=== PATIENT | male | born 1975 | race Caucasian/White ===

== ENCOUNTER → 2016-07-13 | Day surgery (SDC) | payer BC ==
[~2016-07-13] VITALS: Ht 190.5 cm; Wt 110.5 kg
[~2016-07-13] MED LIST: DEXT30TA7 PO; FRS/40 PO; LACT10SO17 PO; LIDOCAINE HCL 2% 2 ML VIAL (20MG/ML) ONE; MIDAZOLAM HCL 1 MG/ML 2ML VIAL ONE; ONDANSETRON INJ 2 MG/ML 2 ML VIAL ONE; POLY335019 PO; PROPOFOL IV EMULSION 10 MG/ML 20 ML VIAL IV ONE; PSYL28.310 PO; SODIUM CHLORIDE 0.9% 500ML 500 ML IV ONE; SPRN100 PO
[2016-07-13 08:18] VITALS: Ht 190.5 cm; Wt 110.5 kg
[2016-07-13 08:21] VITALS: TEMP 37
--- NOTE | 2016-07-13 09:07 | Endo History and Physical ---
History & Physical Date of Service: Jul 13, 2016. Chief Complaint: VARICES Referring Physician: FLAVIO MIGUEL History of Present Illness r/o varices Past Medical History Liver Disease Past Surgical History Hx Cardiac Surgery: No Hx Internal Defibrillator: No Hx Pacemaker: No Hx Abdominal Surgery: No Hx of Implantable Prosthesis: No Hx Post-Op Nausea and Vomiting: No Hx Cancer Surgery: No Hx Thoracic Surgery: No Hx Orthopedic: No Hx Urinary Tract Surgery: No Family History None Social History Smoking Status: Never Smoker Hx Substance Use: No Hx Alcohol Use: Yes (HX) Allergies Coded Allergies: No Known Allergies (Verified , 07/13/16) Current Medications Reported Home Medications Medications Dose Route/Sig Max Daily Dose Days Date Category Mucinex Dm (Dextromethorphan-Guaifenesin) 1 Tab Tab 1 Tab PO QAM PRN 07/11/16 Reported Chronulac (Lactulose) 10 Gm/15 Ml Syrp 15 Ml PO AFTERNOON 07/11/16 Reported Lasix (Furosemide) 40 Mg Tab 40 Mg PO QAM 07/11/16 Reported Metamucil Smooth Texture (Psyllium) 28.3 % Pow 1 Dose PO QAM PRN 06/08/16 Reported Miralax (Polyethylene Glycol 3350) 1 Pow Pow 17 Gm PO DAILY PRN 06/08/16 Reported Spironolactone 100 Mg Tab 100 Mg PO QAM 04/15/14 Reported Vital Signs Weight (Kilograms): 110.45 Height (Feet): 6 Height (Inches): 3 Date Time Temp Pulse Resp B/P Pulse Ox O2 Delivery O2 Flow Rate FiO2 07/13/16 08:21 37.0 94 18 141/72 97 Room Air Physical Exam General Appearance: no apparent distress Respiratory/Chest: Auscultation: breath sounds normal, CTA except as noted Cardiovascular: Heart Auscultation: RRR Abdomen: Inspection & Palpation: soft Assessment and Plan r/o varices - EGD
--- NOTE | 2016-07-13 09:30 | Discharge Instructions ---
Endoscopy Patient Instructions Date / Procedure(s) Performed Jul 13, 2016. EGD Allergy Information Coded Allergies: No Known Allergies (Verified , 07/13/16) Discharge Date / Findings Jul 13, 2016. esophagitis, small varices, portal gastropathy Provider Instructions Activity Restrictions - No exercising or heavy lifting for 24 hours. - Do not drink alcohol the day of the procedure. - Do not drive a car or operate machinery until the day after the procedure. - Do not make any important decisions or sign important papers in 24 hours after the procedure. Following Day: - Return to full activity which may include returning to work/school. Diet Start your diet with liquids and light foods (jello, soup, juice, toast). Then eat your usual diet if not nauseated. Treatment For Common After Affects For mild abdominal pain, bloating, or excessive gas: - Rest - Eat lightly - Lie on right side Begin prilosec once daily Follow-Up Information Follow-up with FLAVIO MIGUEL as scheduled Anesthesia Information What You Should Know You have had a procedure that required some medicine to reduce anxiety and discomfort. This treatment is called moderate sedation. After receiving the treatment, you may be sleepy, but you will be able to breathe on your own. The effects of the treatment may last for several hours. Follow these instructions along with Activity/Diet recommendations noted above: * Do NOT do anything where dizziness or clumsiness would be dangerous. * Rest quietly at home today, then you can be up and about tomorrow. * Have a responsible person stay with you the rest of today. * You may have had an I.V. today. If so, you may take the dressing off later today. Recommendations Call your doctor if: * Trouble breathing * Continuous vomiting for more than 24 hours * Temperature above 101 degrees * Severe abdominal pain or bloating * Pain not relieved by pain medicine ordered * There is increased drainage or redness from any incision * A large amount of rectal bleeding greater than 2-3 tablespoons. (If you had a polyp/s removed or have hemorrhoids, a small amount of blood - from the rectum is to be expected.) * You have any unanswered questions or concerns. IN THE EVENT OF A SERIOUS EMERGENCY, GO TO THE NEAREST EMERGENCY ROOM Your discharge instructions were prepared by provider Gabino Nicolas. Patient Instructions Signature Page Jim Spotts Patient (or Guardian) Signature/Date: I have read and understand the instructions given to me by my caregivers. Caregiver/RN/Doctor Signature/Date: The above-named patient and/or guardian has received patient instructions on this date. + Original Patient Signature Page (only) stays with chart. Please make copy for patient.
--- NOTE | 2016-07-13 09:35 | Anesthesiology Progress Note ---
Anesthesia Post Op Note Date & Time Jul 13, 2016 at 09:34 Vital Signs Pain Intensity: 0 Vital Signs Past 12 Hours Date Time Temp Pulse Resp B/P Pulse Ox O2 Delivery O2 Flow Rate FiO2 07/13/16 09:28 93 18 131/75 95 Room Air 07/13/16 09:24 93 18 141/75 96 Room Air 07/13/16 08:21 37.0 94 18 141/72 97 Room Air Notes Mental Status: alert / awake / arousable, participated in evaluation Pt Amnestic to Procedure: Yes Nausea / Vomiting: adequately controlled Pain: adequately controlled Airway Patency, RR, SpO2: stable & adequate BP & HR: stable & adequate Hydration State: stable & adequate Anesthetic Complications: no major complications apparent
[2016-07-13 09:51] VITALS: BP 128/62; PULSE 84; O2SAT 97
--- NOTE | 2016-07-13 11:08 | GI REPORT ---
Procedure Date: 07/13/2016 9:00 AM Procedure: Upper GI endoscopy Indications: Follow-up of esophageal varices Medicines: See the Anesthesia note for documentation of the administered medications Complications: No immediate complications. Estimated Blood Loss: Estimated blood loss: none. Procedure: Pre-Anesthesia Assessment: - ASA Grade Assessment: III - A patient with severe systemic disease. After obtaining informed consent, the endoscope was passed under direct vision. Throughout the procedure, the patient's blood pressure, pulse, and oxygen saturations were monitored continuously. The Scope was introduced through the mouth, and advanced to the second part of duodenum. The upper GI endoscopy was accomplished without difficulty. The patient tolerated the procedure well. Findings: Candidiasis was noted in the proximal esophagus. LA Grade B (one or more mucosal breaks greater than 5 mm, not extending between the tops of two mucosal folds) esophagitis with no bleeding was found. One grade I varix were found in the lower third of the esophagus. There were no varices in the fundus. There was mild portal gastropathy and a small amount of coffee ground material in the body and fundus. The antrum was normal. The duodenum was normal. Impression: - LA Grade B reflux esophagitis. - Grade I esophageal varices. - Esophageal candidiasis. Recommendation: - Discharge patient to home. Begin PPI once daily. Gabino Dunham M.D. Gabino Dunham MD 07/13/2016 9:35:40 AM This report has been signed electronically. Note Initiated On: 07/13/2016 9:00 AM I attest to the content of the Intraoperative Record and orders documented therein, exceptions below
== END | disposition home or self-care (01) ==
LOC: C.GI 07:58
PROVIDERS: ATTEND Internal Medicine Gastroenterology
DX: I85.00 Esophageal varices without bleeding (principal); B37.81 Candidal esophagitis; K21.0 Gastro-esophageal reflux disease with esophagitis; K76.6 Portal hypertension; K76.9 Liver disease, unspecified